=== PATIENT | female | born 1990 | race Caucasian/White ===

== ENCOUNTER 2016-04-12 01:50 | Emergency (ER) | payer SELFPAY ==
--- NOTE | 2016-04-12 02:31 | ED ---
Allergic Reaction HPI - General Chief complaint: Allergic Reaction Stated complaint: Allergic Reaction Time Seen by Provider: 04/12/16 02:05 Source: patient, family, RN notes reviewed Mode of arrival: ambulatory Limitations: no limitations - History of Present Illness Initial Comments: Patient is a 25-year-old female presents to the emergency room for possible ALLERGIC reaction. Patient states she woke up this morning in her chest felt "itchy". Patient states that she was at work today around 7 PM and her friend noticed that she had red spots forming in both of her cheeks of her face. Patient states that over the next hour her right ear began to swell. Patient states she's having a headache behind her ear. Patient states that she took 2 children's Benadryl and symptoms began to subside. Patient states that she still having irritation from the rash and a slight headache. Patient denies new face wash, shampoos, detergents, new medications. Patient denies having contact with new pets or plants. Patient also states she's had a cough for the past week. Patient states been taking [id number] cough drops. Patient states she's taken them before with no reaction. Patient's denies any trouble swallowing. Patient denies chest pain. - Related Data Home Medications Medication Instructions Recorded Confirmed [id number] 2 tab PO BID PRN 11/29/15 12/10/15 [Excedrin] Previous Rx's Medication Instructions Recorded LORazepam [Ativan] 0.5 mg PO TID PRN #15 tab 12/10/15 Meclizine [Antivert] 25 mg PO TID PRN #15 tab 12/10/15 Potassium Chloride [Klor-Con 10] 10 meq PO DAILY #5 tablet.er 12/10/15 Famotidine [Pepcid] 20 mg PO DAILY #4 tablet 04/12/16 predniSONE 40 mg PO DAILY #4 tab 04/12/16 Allergies Allergy/AdvReac Type Severity Reaction Status Date / Time No Known Allergies Allergy Verified 12/10/15 00:09 Review of Systems ROS Statement: Those systems with pertinent positive or pertinent negative responses have been documented in the HPI. ROS Other: All systems not noted in ROS Statement are negative. Past Medical History Past Medical History: Asthma Additional Past Medical History / Comment(s): migraines History of Any Multi-Drug Resistant Organisms: None Reported Past Surgical History: Adenoidectomy, Orthopedic Surgery Past Anesthesia/Blood Transfusion Reactions: No Reported Reaction Past Psychological History: No Psychological Hx Reported Smoking Status: Never smoker Past Alcohol Use History: Occasional Past Drug Use History: None Reported - Past Family History Father Family Medical History: No Reported History General Exam - General Exam Comments Initial Comments: Sitting in exam room, no acute distress. Limitations: no limitations General appearance: alert, in no apparent distress Head exam: Present: atraumatic, normocephalic, normal inspection Eye exam: Present: normal appearance ENT exam: Present: normal exam Neck exam: Present: normal inspection Respiratory exam: Present: normal lung sounds bilaterally. Absent: respiratory distress Cardiovascular Exam: Present: regular rate, normal rhythm, normal heart sounds Extremities exam: Present: normal inspection Back exam: Present: normal inspection Neurological exam: Present: alert, oriented X3, CN II-XII intact, normal gait Psychiatric exam: Present: normal affect, normal mood Skin exam: Present: other (Erythematous macule lesions over bilateral cheeks) Course Vital Signs 04/12/16 04/12/16 04/12/16 02:03 02:31 03:02 Temperature 97.2 F L 96.7 F L Pulse Rate 81 78 Respiratory 20 20 16 Rate Blood Pressure 129/87 112/72 O2 Sat by Pulse 100 98 Oximetry Medical Decision Making - Medical Decision Making Patient is a 25-year-old female presents emergency room for violation of possible ALLERGIC reaction. Patient was given Solu-Medrol and Pepcid. Patient states symptoms are beginning to subside. Will send patient home with a few days of prednisone and advised her to take Benadryl every 4-6 hours as needed. Advised patient to follow-up with her primary care provider in 1-2 days. Patient states she understands everything that was discussed with her. Return parameters discussed. Disposition Clinical Impression: Allergic reaction Disposition: HOME SELF-CARE Condition: Good Instructions: General Allergic Reaction (ED) Additional Instructions: Take Benadryl every 4-6 hours. Take medications as directed. Please follow up with primary care provider in 1-2 days. If any new symptom arises, symptoms worsen or fever develops, return to ER as soon as possible. Prescriptions: Famotidine [Pepcid] 20 mg PO DAILY #4 tablet predniSONE 40 mg PO DAILY #4 tab Referrals: None,Stated [Primary Care Provider] - 1-2 days Time of Disposition: 02:57
[2016-04-12] MEDS ORDERED: FAMOTIDINE 20 MG TAB PO STA (02:42)
[2016-04-12] MEDS ORDERED: methylPREDNISolone SOD SUCCI 125 MG/2 ML VIAL IM ONE (02:42)
[2016-04-12 03:02] VITALS: BP 112/72; PULSE 78; RESP 16; TEMP 96.7
== END 2016-04-12 03:13 | disposition home or self-care (01) ==
LOC: EC 01:50
DX: T78.40XA Allergy, unspecified, initial encounter (principal); Z79.899 Other long term (current) drug therapy
CPT/HCPCS: 96372; 99283; 93005; J2930

== ENCOUNTER 2016-07-24 22:43 | Emergency (ER) | payer OTHER ==
[2016-07-24 23:11] VITALS: BP 131/74; PULSE 79; RESP 20; TEMP 98.3
--- NOTE | 2016-07-24 23:57 | XR ---
EXAMINATION TYPE: XR shoulder complete RT DATE OF EXAM: 07/24/2016 11:50 PM COMPARISON: NONE HISTORY: Pain TECHNIQUE: 3 views FINDINGS: I see no fracture nor dislocation. There are no pathologic calcifications. Joint spaces are normal. IMPRESSION: Negative right shoulder exam.
[2016-07-25] MEDS ORDERED: IBUPROFEN 800 MG TAB PO STA (00:47)
--- NOTE | 2016-07-25 01:00 | ED ---
Upper Extremity HPI - General Chief Complaint: Extremity Injury, Upper Stated Complaint: Rt shoulder injury Time Seen by Provider: 07/25/16 00:30 Source: patient Mode of arrival: ambulatory Limitations: no limitations - History of Present Illness Initial Comments: Is a 25-year-old female who states she's had pain in her right shoulder this seems to radiate down no was burning sensation past week or so. 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 She does do lifting she has 1-year-old child also that she lifts. She has no complaint of neck or head pain no loss of function to her upper or lower extremities she is dominant right-handed. MD Complaint: Injury to:: right, shoulder - Related Data Home Medications Medication Instructions Recorded Confirmed [id number] 2 tab PO BID PRN 11/29/15 12/10/15 [Excedrin] Previous Rx's Medication Instructions Recorded LORazepam [Ativan] 0.5 mg PO TID PRN #15 tab 12/10/15 Meclizine [Antivert] 25 mg PO TID PRN #15 tab 12/10/15 Potassium Chloride [Klor-Con 10] 10 meq PO DAILY #5 tablet.er 12/10/15 Famotidine [Pepcid] 20 mg PO DAILY #4 tablet 04/12/16 predniSONE 40 mg PO DAILY #4 tab 04/12/16 Cyclobenzaprine [Flexeril] 10 mg PO TID #14 tab 07/25/16 Ibuprofen [Motrin] 800 mg PO Q6HR PRN #20 tab 07/25/16 Allergies Allergy/AdvReac Type Severity Reaction Status Date / Time No Known Allergies Allergy Verified 07/24/16 23:11 Review of Systems ROS Statement: Those systems with pertinent positive or pertinent negative responses have been documented in the HPI. ROS Other: All systems not noted in ROS Statement are negative. Past Medical History Past Medical History: Asthma Additional Past Medical History / Comment(s): migraines History of Any Multi-Drug Resistant Organisms: None Reported Past Surgical History: Adenoidectomy, Orthopedic Surgery Past Anesthesia/Blood Transfusion Reactions: No Reported Reaction Past Psychological History: No Psychological Hx Reported Smoking Status: Current every day smoker Past Alcohol Use History: Occasional Past Drug Use History: None Reported - Past Family History Father Family Medical History: No Reported History General Exam - General Exam Comments Initial Comments: This is a well-developed well-nourished awake alert oriented x3 female Limitations: no limitations General appearance: alert, in no apparent distress Head exam: Present: atraumatic, normocephalic, normal inspection Eye exam: Present: normal appearance, PERRL Neck exam: Present: normal inspection, tenderness (Mild tenderness palpation on the lateral trapezius musculature of the soft tissue the neck no spinous process tenderness no step-off or crepitation.). Absent: meningismus, lymphadenopathy Respiratory exam: Present: chest wall tenderness (There is some tenderness palpation over the rhomboids on the right) Extremities exam: Present: normal inspection, full ROM, normal capillary refill. Absent: tenderness, pedal edema, joint swelling, calf tenderness Back exam: Present: other (As above) Neurological exam: Present: alert, oriented X3, CN II-XII intact Psychiatric exam: Present: normal affect, normal mood Skin exam: Present: warm, dry, intact, normal color. Absent: rash Course Vital Signs 07/24/16 23:08 Temperature 98.3 F Pulse Rate 79 Respiratory 20 Rate Blood Pressure 131/74 O2 Sat by Pulse 99 Oximetry Medical Decision Making - Medical Decision Making Patient's presentation is consistent with cervical radiculopathy to the right upper extremity to be placed on anti-inflammatories and muscle relaxers - Radiology Data Radiology results: report reviewed (X-rays negative for acute findings), image reviewed Disposition Clinical Impression: Cervical radiculopathy Disposition: HOME SELF-CARE Condition: Good Instructions: Cervical Radiculopathy (ED), Shoulder Pain (ED) Prescriptions: Cyclobenzaprine [Flexeril] 10 mg PO TID #14 tab Ibuprofen [Motrin] 800 mg PO Q6HR PRN #20 tab PRN Reason: Pain
== END 2016-07-25 01:09 | disposition home or self-care (01) ==
LOC: EC 22:43
DX: M54.12 Radiculopathy, cervical region (principal); F17.200 Nicotine dependence, unspecified, uncomplicated
CPT/HCPCS: 99283

== ENCOUNTER 2016-10-02 15:50 | Emergency (ER) | payer OTHER ==
[2016-10-02 16:01] VITALS: BP 109/79; PULSE 94; RESP 20; TEMP 97.5
--- NOTE | 2016-10-02 16:27 | XR ---
EXAMINATION TYPE: XR ankle complete RT, XR foot limited RT, 5 VIEWS DATE OF EXAM ORDERED: 10/02/2016 HISTORY: Pain. COMPARISON: None. FINDINGS: Osseous structures about the ankle are normal. There is no fracture, dislocation or ankle joint effusion. Osseous structures about the foot are normal. There is no fracture or dislocation. No other acute oss eous lesion is seen. IMPRESSION: NORMAL RIGHT FOOT AND ANKLE.
--- NOTE | 2016-10-02 16:48 | ED ---
Extremity Problem HPI - General Chief complaint: Extremity Problem,Nontraumatic Stated complaint: rt ankle injury Time Seen by Provider: 10/02/16 16:03 Source: patient, RN notes reviewed, old records reviewed Mode of arrival: wheelchair Limitations: no limitations - History of Present Illness Initial comments: Is a 25-year-old female presenting to emergency Department chief complaint of right foot and ankle pain today. Patient reports that she's noticed a shooting pain over her foot. Patient reports that he was walking getting ready for work today when she started noticed the pain. She denies any numbness or tingling in her feet or toes. Patient states that she had no specific injury to cause the pain. She denies rolling her ankle. Patient denies any recent fever, chills , shortness of breath, chest pain, back pain, abdominal pain, nausea vomiting, numbness or tingling, dysuria or hematuria, constipation or diarrhea, headaches or visual changes, or any other current symptoms. Patient reports that she does wear flat shoes to work. - Related Data Previous Rx's Medication Instructions Recorded Ibuprofen [Motrin] 600 mg PO Q8HR PRN #20 tab 10/02/16 Allergies Allergy/AdvReac Type Severity Reaction Status Date / Time No Known Allergies Allergy Verified 10/02/16 16:10 Review of Systems ROS Statement: Those systems with pertinent positive or pertinent negative responses have been documented in the HPI. ROS Other: All systems not noted in ROS Statement are negative. Past Medical History Past Medical History: Asthma Additional Past Medical History / Comment(s): migraines History of Any Multi-Drug Resistant Organisms: None Reported Past Surgical History: Adenoidectomy, Orthopedic Surgery Past Anesthesia/Blood Transfusion Reactions: No Reported Reaction Past Psychological History: No Psychological Hx Reported Smoking Status: Current every day smoker Past Alcohol Use History: Occasional Past Drug Use History: None Reported - Past Family History Father Family Medical History: No Reported History General Exam - General Exam Comments Initial Comments: 25-year-old female. No acute distress. Limitations: no limitations General appearance: alert, in no apparent distress Head exam: Present: atraumatic, normocephalic, normal inspection Eye exam: Present: normal appearance, PERRL, EOMI. Absent: scleral icterus, conjunctival injection, periorbital swelling ENT exam: Present: normal exam, mucous membranes moist Neck exam: Present: normal inspection. Absent: tenderness, meningismus, lymphadenopathy Respiratory exam: Present: normal lung sounds bilaterally. Absent: respiratory distress, wheezes, rales, rhonchi, stridor Cardiovascular Exam: Present: regular rate, normal rhythm, normal heart sounds. Absent: systolic murmur, diastolic murmur, rubs, gallop, clicks GI/Abdominal exam: Present: soft, normal bowel sounds. Absent: distended, tenderness, guarding, rebound, rigid Extremities exam: Present: normal inspection, full ROM, normal capillary refill. Absent: tenderness, pedal edema, joint swelling, calf tenderness Back exam: Present: normal inspection Neurological exam: Present: alert, oriented X3, CN II-XII intact Psychiatric exam: Present: normal affect, normal mood Skin exam: Present: warm, dry, intact, normal color. Absent: rash Course Vital Signs 10/02/16 15:59 Temperature 97.5 F L Pulse Rate 94 Respiratory 20 Rate Blood Pressure 109/79 O2 Sat by Pulse 98 Oximetry Medical Decision Making - Medical Decision Making Is a 25-year-old female presenting to emergency Department chief complaint of right foot and ankle pain today. Patient reports that she's noticed a shooting pain over her foot. Patient reports that he was walking getting ready for work today when she started noticed the pain. Patient's right foot has 2+ dorsalis pedis pulse, no deformity or significant swelling. Patient presents the pain is mainly over the lateral aspect of the foot and ankle. Patient was mildly tender to palpation. He reports that seems to be worse with walking and bearing weight over her foot. Patient x-rays reviewed and negative for any acute process. Patient was given Leo wrap and anti-inflammatory medication all bedding and icing the foot. Also discussed proper foot care. Patient agrees with treatment plan will comply. Return parameters were discussed. - Radiology Data Radiology results: report reviewed X-rays are reviewed and negative for any acute process. Disposition Clinical Impression: Right foot pain Disposition: HOME SELF-CARE Condition: Good Instructions: Foot Sprain (ED), Tendinitis (ED) Additional Instructions: Patient needs to rest, ice, and elevate extremity. Follow up with PCP. Wear LEO wrap. Prescriptions: Ibuprofen [Motrin] 600 mg PO Q8HR PRN #20 tab PRN Reason: Pain Referrals: None,Stated [Primary Care Provider] - 1-2 days Kiara Goldberg MD [STAFF PHYSICIAN] - 1-2 days Time of Disposition: 16:44
== END 2016-10-02 17:05 | disposition home or self-care (01) ==
LOC: EC 15:50
DX: M79.671 Pain in right foot (principal); F17.200 Nicotine dependence, unspecified, uncomplicated; Z98.890 Other specified postprocedural states
CPT/HCPCS: 99284

== ENCOUNTER 2016-12-23 12:39 | Emergency (ER) | payer OTHER ==
[2016-12-23 13:10] VITALS: BP 122/80; PULSE 87; RESP 20; TEMP 98.6
[2016-12-23] MEDS ORDERED: IBUPROFEN 600 MG TAB PO STA (13:22)
--- NOTE | 2016-12-23 13:30 | ED ---
URI HPI - General Chief Complaint: Upper Respiratory Infection Stated Complaint: URI Time Seen by Provider: 12/23/16 13:16 Source: patient Mode of arrival: ambulatory Limitations: no limitations - History of Present Illness Initial Comments: 26-year-old female patient presented to emergency department today with complaints of nasal congestion, cough, and sore throat times one day. Patient states that she was released from work and was told she has to have a note. Patient states that her children have been sick with upper respiratory infections. She states that her throat feels swollen and she has pain with swallowing. Patient states that her nasal drainage is green in color. Denies any fever or chills. She denies any rash, ear pain, shortness breath, chest pain, abdominal pain, nausea, vomiting, diarrhea, constipation, back pain, numbness, tingling, headache, visual changes, hematuria, dysuria, urinary frequency, urinary urgency, or any other complaints. - Related Data Previous Rx's Medication Instructions Recorded Ibuprofen [Motrin] 600 mg PO Q8HR PRN #20 tab 10/02/16 Allergies Allergy/AdvReac Type Severity Reaction Status Date / Time No Known Allergies Allergy Verified 12/23/16 13:09 Review of Systems ROS Statement: Those systems with pertinent positive or pertinent negative responses have been documented in the HPI. ROS Other: All systems not noted in ROS Statement are negative. Past Medical History Past Medical History: Asthma Additional Past Medical History / Comment(s): migraines History of Any Multi-Drug Resistant Organisms: None Reported Past Surgical History: Adenoidectomy, Orthopedic Surgery Past Anesthesia/Blood Transfusion Reactions: No Reported Reaction Past Psychological History: Depression Smoking Status: Current every day smoker Past Alcohol Use History: Occasional Past Drug Use History: None Reported - Past Family History Father Family Medical History: No Reported History General Exam Limitations: no limitations General appearance: alert, in no apparent distress, other (Nontoxic, or developed, well-nourished female. In no acute distress. Vital signs upon presentation a temperature 98.6, pulse 87, respirations 20, blood pressure 122/ 80, pulse ox 99% on room air.) Eye exam: Present: normal appearance, PERRL, EOMI. Absent: scleral icterus, conjunctival injection, periorbital swelling ENT exam: Present: mucous membranes moist, TM's normal bilaterally. Absent: normal exam, normal oropharynx (Oropharyngeal erythema, symmetrical tonsillar hypertrophy, no tonsillar exudate noted.Uvula is midline.) Neck exam: Present: normal inspection, full ROM. Absent: tenderness, meningismus, lymphadenopathy Respiratory exam: Present: normal lung sounds bilaterally. Absent: respiratory distress, wheezes, rales, rhonchi, stridor Cardiovascular Exam: Present: regular rate, normal rhythm, normal heart sounds. Absent: systolic murmur, diastolic murmur, rubs, gallop, clicks GI/Abdominal exam: Present: soft, normal bowel sounds. Absent: distended, tenderness, guarding, rebound, rigid Neurological exam: Present: alert, oriented X3, CN II-XII intact Psychiatric exam: Present: normal affect, normal mood Skin exam: Present: warm, dry, intact, normal color. Absent: rash Course Vital Signs 12/23/16 13:08 Temperature 98.6 F Pulse Rate 87 Respiratory 20 Rate Blood Pressure 122/80 O2 Sat by Pulse 99 Oximetry Medical Decision Making - Medical Decision Making 26-year-old female patient presents to emergency department today for evaluation of upper respiratory symptoms. Patient states she has had symptoms for 1 day. She denies any fever or chills. Patient's children have been sick with similar symptoms over the last week. She was sent home from work and is requesting a work note. Patient also has a viral upper respiratory infection. Strep screen was negative. She will be discharged home with instructions to take Tylenol or Motrin for pain and fever control. She is instructed to take abhm-two-weyffio nasal decongestants, rest, and increase her fluids. She is instructed to follow-up with her primary care physician for recheck in 1-2 days. She is instructed to return here immediately for any new, worsening, or concerning symptoms. Patient verbalizes understanding and agrees with this plan. - Lab Data Lab Results 12/23/16 Range/Units 13:23 Group A Strep Rapid Negative (Negative) Disposition Clinical Impression: Viral upper respiratory infection Disposition: HOME SELF-CARE Condition: Good Instructions: Upper Respiratory Infection (ED) Additional Instructions: Rest and increase fluids. Take [id number] Tylenol Motrin for pain or fever control. Use dkoz-[id number]-[id number] nasal decongestants for relief of symptoms. Follow up with your primary care physician for recheck in 1-2 days. Return here immediately for any new, worsening, or concerning symptoms Referrals: None,Stated [Primary Care Provider] - 1-2 days Time of Disposition: 13:53
== END 2016-12-23 14:12 | disposition home or self-care (01) ==
LOC: EC 12:39
DX: J06.9 Acute upper respiratory infection, unspecified (principal); F17.200 Nicotine dependence, unspecified, uncomplicated
CPT/HCPCS: 87081; 87430; 99283